=== PATIENT | female | born 1950 | race Hispanic/Latino ===

== ENCOUNTER → 2021-06-04 | Outpatient (CLI) | payer OTHER, MEDICAID ==
[~2021-06-04] MED LIST: REGL10TA6 PO
== END ==
LOC: M WHC 09:25
PROVIDERS: ATTEND Family Medicine Addiction Medicine
DX: Z12.31 Encounter for screening mammogram for malignant neoplasm of breast (principal)

== ENCOUNTER 2022-02-04 07:54 | Emergency (ER) | payer OTHER, MEDICAID ==
[~2022-02-04] VITALS: Ht 170.2 cm; Wt 70.4 kg
[2022-02-04] MEDS ORDERED: AMLO1TAB25 (07:59)
[2022-02-04] MEDS ORDERED: ALBU8.5H (07:59)
[2022-02-04] MEDS ORDERED: LORA-674 (07:59)
[2022-02-04] MEDS ORDERED: ROSU10TA6 (08:02)
[2022-02-04 11:08] LABS: RSV AMPLIFICATION NEGATIVE (NEGATIVE)
[2022-02-04] MEDS ORDERED: BENZONATATE 100MG CAPSULE PO ONE (11:50)
[2022-02-04] MEDS ORDERED: BENZ200C70 PO (12:02)
[2022-02-04] MEDS ORDERED: MUCI1TAB16 PO (12:02)
[2022-02-04 12:18] VITALS: BP 134/72
[2022-02-04] MEDS ORDERED: guaiFENesin ER 600 MG TAB PO ONE (12:30)
[2022-02-04] MEDS ORDERED: guaiFENesin ER 600 MG TAB PO SCH (21:00)
== END 2022-02-04 13:11 | disposition home or self-care (01) ==
LOC: M ED 07:54
DX: U07.1 COVID-19 (principal); I10 Essential (primary) hypertension; E78.5 Hyperlipidemia, unspecified; Z79.51 Long term (current) use of inhaled steroids; Z79.811 Long term (current) use of aromatase inhibitors; Z79.899 Other long term (current) drug therapy

== ENCOUNTER 2022-03-03 08:02 | Emergency (ER) | payer OTHER, MEDICAID ==
[~2022-03-03] VITALS: Ht 170.2 cm; Wt 71.5 kg
[~2022-03-03 08:02] MED LIST changes: +ALBU8.5H; +AMLO1TAB25; +BENZ200C70 PO; +LORA-674; +MUCI1TAB16 PO; +ROSU10TA6
[2022-03-03 08:04] VITALS: BP 146/67
[2022-03-03] MEDS ORDERED: MELA2.5C4 PO (08:15)
[2022-03-03] MEDS ORDERED: IBUPROFEN 600MG TAB PO ONE (11:25)
[2022-03-03 12:48] LABS: RSV AMPLIFICATION NEGATIVE (NEGATIVE)
== END 2022-03-03 12:16 | disposition home or self-care (01) ==
LOC: M ED 08:02
DX: J02.9 Acute pharyngitis, unspecified (principal); I10 Essential (primary) hypertension; E78.5 Hyperlipidemia, unspecified; Z79.811 Long term (current) use of aromatase inhibitors; Z79.899 Other long term (current) drug therapy

== ENCOUNTER 2022-09-09 08:00 | Day surgery (SDC) | payer OTHER, MEDICAID ==
[~2022-09-09] VITALS: Ht 177.8 cm; Wt 72.1 kg
[~2022-09-09 08:00] MED LIST changes: -AMLO1TAB25; +AMLO1TAB25 PO; -LORA-674; +LORA-674 PO; +MELA2.5C4 PO; +NS 1,000 ML IV ONE; -ROSU10TA6; +ROSU10TA6 PO
[2022-09-09] MEDS ORDERED: propofoL 200 MG/20 ML VIAL As Ordered ONE (10:04)
[2022-09-09 10:25] VITALS: BP 159/67
== END 2022-09-09 10:25 | disposition home or self-care (01) ==
LOC: M OPP 08:00
PROVIDERS: ATTEND Internal Medicine Gastroenterology
DX: D12.6 Benign neoplasm of colon, unspecified (principal); K64.0 First degree hemorrhoids; K57.30 Diverticulosis of large intestine without perforation or abscess without bleeding; R19.5 Other fecal abnormalities; Z79.02 Long term (current) use of antithrombotics/antiplatelets; Z79.899 Other long term (current) drug therapy

== ENCOUNTER → 2023-06-14 | Outpatient (REF) | payer OTHER, MEDICAID ==
[~2023-06-14] MED LIST changes: +LORA-1041 PO; -LORA-674 PO; -NS 1,000 ML IV ONE
[2023-06-14 13:53] LABS: THYROID STIMULATING HORMONE 2.612 uIU/ML (0.55-4.78)
[2023-06-14 14:05] LABS: ALKALINE PHOSPHATASE 107 U/L (46-116); ALT/SGPT 24 U/L (7.0-40); AST/SGOT 24 U/L (<34); BILIRUBIN,TOTAL 0.8 MG/DL (0.3-1.2); BLOOD UREA NITROGEN 12 MG/DL (9-23); CALCIUM LEVEL 9.5 MG/DL (8.3-10.6); CARBON DIOXIDE LEVEL 27 MMOL/L (20-31); CHLORIDE LEVEL 107 MMOL/L (98-107); CHOLESTEROL LEVEL 140 MG/DL (<200); CHOLESTEROL RISK RATIO 3.39 (<5); GLOMERULAR FILTRATION RATE > 60.0 (>39); GLUCOSE, FASTING 100 MG/DL (74-106); HDL CHOLESTEROL 41.2 MG/DL (>40); LDL CHOLESTEROL 82.4 MG/DL (<100); NON-HDL-C 98.8 MG/DL; POTASSIUM SERUM 4.4 MMOL/L (3.5-5.1); SODIUM LEVEL 141 MMOL/L (136-145); TOTAL PROTEIN 7.4 G/DL (5.7-8.2); TRIGLYCERIDES LEVEL 82 MG/DL (<150)
== END ==
LOC: M LAB REF 13:17
PROVIDERS: ATTEND Family Medicine Addiction Medicine
DX: E78.5 Hyperlipidemia, unspecified (principal)

== ENCOUNTER → 2023-07-14 | Outpatient (CLI) | payer OTHER, MEDICAID | LOC: M WHC 09:33 | PROVIDERS: ATTEND Family Medicine Addiction Medicine | DX: Z12.31 Encounter for screening mammogram for malignant neoplasm of breast (principal) ==